=== PATIENT | female | born 1985 | race Caucasian/White ===

== ENCOUNTER 2018-05-25 18:07 | Emergency (ER) | payer MEDICAID ==
[~2018-05-25] VITALS: Ht 165.1 cm; Wt 99.0 kg
[2018-05-25] MEDS ORDERED: LORAZEPAM 1MG TABLET PO ONE (22:45)
[2018-05-25] MEDS ORDERED: OLANZAPINE 5MG TABLET ODT PO ONE (22:45)
[2018-05-25 23:43] LABS: BASOPHILS % 0.6 % (0.0-2.0); EOSINOPHILS % 1.7 % (0.0-5.0); HEMATOCRIT. 35.6 % (36.0-48.0); HEMOGLOBIN. 12.6 g/dL (12.0-16.0); LYMPHOCYTES % 37.6 % (20.0-50.0); MEAN CORPUSCULAR HEMOGLOBIN 31.8 pg (28.0-32.0); MEAN CORPUSCULAR VOLUME 89.8 fL (81.0-99.0); MEAN PLATELET VOLUME 8.2 fl (7.4-10.4); MONOCYTES % 8.2 % (2.0-8.0); NEUTROPHILS % 51.9 % (40.0-76.0); PLATELET 258 x1000/uL (130-400); RED BLOOD CELL COUNT 3.96 mill/uL (4.2-5.4); RED CELL DISTRIBUTION WIDTH 12.9 % (11.6-14.6)
[2018-05-26 00:20] LABS: CHLORIDE 108 mEq/L (98-107)
[2018-05-26 00:25] LABS: ETHANOL BLOOD < 10 mg/dL
[2018-05-26 00:45] LABS: *AMPHETAMINES SCREEN URINE NEGATIVE (NEGATIVE); *BARBITURATES SCREEN URINE NEGATIVE (NEGATIVE); *BENZODIAZEPINES SCREEN URINE NEGATIVE (NEGATIVE); *COCAINE SCREEN URINE NEGATIVE (NEGATIVE); METHADONE URINE SCREEN NEGATIVE (NEGATIVE)
[2018-05-26 00:46] LABS: CANNABINOID URINE SCREEN NEGATIVE (NEGATIVE); OPIATES URINE SCREEN NEGATIVE (NEGATIVE); PHENCYCLIDINE URINE SCREEN NEGATIVE (NEGATIVE)
[2018-05-26 00:49] LABS: HCG SCREEN NEGATIVE
[2018-05-26 08:11] VITALS: BP 110/79
== END 2018-05-26 08:13 | disposition home or self-care (01) ==
LOC: ER 23:55
DX: F23 Brief psychotic disorder (principal); F32.9 Major depressive disorder, single episode, unspecified; E66.01 Morbid (severe) obesity due to excess calories; Z68.36 Body mass index [BMI] 36.0-36.9, adult
CPT/HCPCS: 36415; 80048; 80305; 80307; 80329; 81025; 84703; 85025; 99284; G0482